=== PATIENT | male | born 1995 | race Two or more races ===

== ENCOUNTER 2020-10-15 01:28 | Emergency (ER) | payer MEDICAID, OTHER ==
[~2020-10-15] VITALS: Ht 182.9 cm; Wt 69.5 kg
[2020-10-15 06:00] VITALS: BP 131/71
== END 2020-10-15 06:56 | disposition home or self-care (01) ==
LOC: ER 01:33
DX: M25.551 Pain in right hip (principal); M79.672 Pain in left foot; R51.9 Headache, unspecified; V43.52XA Car driver injured in collision with other type car in traffic accident, initial encounter; Y93.89 Activity, other specified; Y92.488 Other paved roadways as the place of occurrence of the external cause; Y99.8 Other external cause status
CPT/HCPCS: 70450; 73630; 73700